=== PATIENT | male | born 1980 | race Caucasian/White ===

== ENCOUNTER 2017-09-21 17:23 | Emergency (ER) | payer OTHER ==
[~2017-09-21] VITALS: Ht 177.8 cm; Wt 86.2 kg
[~2017-09-21 17:23] MED LIST: MOTRIN800 MG PO; NO DAILY MEDS
[2017-09-21 17:59] LABS: BASO % 0.6 % (0.0-1.0); EOS # 0.1 10*3/uL (0.0-0.4); EOS % 1.4 % (1.0-4.0); HEMOGLOBIN 13.7 g/dl (14.0-18.0); LYMPH # 2.3 10*3/uL (1.3-4.4); LYMPH % 32.5 % (27.0-41.0); MEAN CELL VOLUME 87.1 fl (80.0-94.0); MEAN CORPUSCULAR HGB 29.8 pg (27.0-31.0); MEAN CORPUSCULAR HGB CONC 34.3 g/dl (33.0-37.0); MEAN PLATELET VOLUME 10.3 fl (9.6-12.3); MONO # 0.5 10*3/uL (0.1-1.0); MONO % 6.7 % (3.0-9.0); NEUT # 4.1 10*3/uL (2.3-7.9); NEUT % 58.7 % (47.0-73.0); PLATELET COUNT AUTOMATED 249 10*3/uL (130-400); RED BLOOD COUNT 4.59 10*6/uL (4.50-5.90); RED CELL DISTRI WIDTH 12.5 % (0-14.5)
[2017-09-21 18:15] LABS: ALBUMIN 4.1 gm/dl (3.1-4.5); CREATININE 1.9 mg/dL (0.70-1.30); POTASSIUM 3.6 mmol/L (3.5-5.1); TOTAL PROTEIN 7.6 gm/dL (6.4-8.2)
== END 2017-09-21 19:15 | disposition short-term general hospital (02) ==
LOC: ED 17:23
PROVIDERS: Emergency Medicine
DX: M62.81 Muscle weakness (generalized) (principal)

== ENCOUNTER 2022-05-12 23:34 | Emergency (ER) | payer OTHER ==
[~2022-05-12] VITALS: Ht 177.8 cm; Wt 86.2 kg
[2022-05-13] MEDS ORDERED: PREDNISONE20 M1 PO (00:44)
== END 2022-05-13 00:55 | disposition home or self-care (01) ==
LOC: ED 23:34
DX: M79.671 Pain in right foot (principal)